=== PATIENT | female | born 1940 | race Caucasian/White ===

== ENCOUNTER 2020-06-28 14:25 | Emergency (ER) | payer OTHER ==
--- OUTSIDE RECORDS SUMMARY | 2020-06-28 14:28 | XMS REPORT | Continuity of Care Document ---
:1940 Author Organization [facility] t Address [address] [place] [address] Care Team Providers Name Role Phone Kyrie BARRAZA Loida Primary Care Physician Problems Condition Condition Condition Status Onset Resolution Last Treating Co mments Source Name Details Category Date Date Treatment Clinician Date Anesthesia Anesthesia Problem Active [facility] Other Other Problem Active [facility] chronic chronic [facility] pain pain [facility] Tinea Tinea Problem Active [facility] unguium [facility]guium [facility] Dizziness Dizziness Problem [facility] Neuropathy Neuropathy Problem Active [facility] Hypertensi Hypertensi Problem Active [facility] on [facility] Edema, Edema, Problem Active [facility] - extremity extremity Viktor delmis l [facility] 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 Lucy kes - emia emia [facility] Chest Chest Problem Active [facility] discomfort discomfort Lucy kes - [facility] Cervicalgi Cervicalgi Problem Active [facility] a [facility] Osteoarthr Osteoarthr Problem Active [facility] itis of itis of [facility] - multiple multiple Memori a joints, joints, l unspecifie unspecifie Ou tpati d d ent osteoarthr osteoarthr Cl inics itis type itis type Paresthesi Paresthesi Problem Active [facility] a of skin a of skin [facility] Paronychia Paronychia Problem Active [facility] of toe of of toe of Luke [facility] - right foot right foot Me moria l [facility] Prolapse Prolapse Problem Active [facility] t 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 [facility] - bladder, bladder, Memori a acquired acquired l [facility] Urge Urge Problem Active [facility] incontinen incontinen Lucy kes - ce of ce of Memoria urine urine l [facility]ics Dry eyes Dry eyes Problem Active [facility] Medicare Medicare Diagnosis Active [facility] annual annual [facility] - wellness wellness Memori a visit, visit, l subsequent subsequent Ou tpa ent Clinics Allergies, Adverse Reactions, Alerts Allergy Allergy Status Severity Reaction(s) Onset Inactive Treating Comm ents Source Name Type Date Date Clinician penicill Adverse Active constriction C HI [facility] in Reaction of throat [facility] Family History Family Member Diagnosis Comments Start Date Stop Date Source Natural brother Cancer [facility] ethodist Natural father Cancer [facility] thodist Natural father Diabetes [facility] Maternal grandmother Arthritis [facility] Maternal uncle Cancer [facility] Maternal uncle Heart disease [facility] Natural mother Cancer [facility] Paternal aunt Heart disease [facility] Paternal grandfather [facility] Paternal grandmother [facility] Natural sister Diabetes [facility] Social History Social Habit Start Date Stop Date Quantity Comments Source Sex Assigned At [facility] ethodist Alcohol intake 2018-03-23 2018-03-23 Current [facility] thodist 00:00:00 00:00:00 non-drinker of alcohol (finding) Smoking Status Start Date Stop Date Source Never smoker [facility] Medications Ordered Filled Start Stop Current Ordering Indication Dosage Frequency Signature Comments Components Source Medication Medication Date Date Medication? Clinician (SIG) Name Name Losartan Losartan Yes Na Mittal TAKE ONE [facility] Potassium Potassium 2-13 (1) [facility] - 00:00: TABLET(S) Memoria 00 BY MOUTH l ONCE A Out DAY. ent Clinics magnesium Yes 500mg QD Take 500 Jessica ston gluconate 6-13 mg by Methodi (MAGONATE) 10:06: mouth st 500 mg 16 daily. tablet tablet folic acid Yes 1{tbl} QD Take 1 Jessica ston 2.5 mg + B6 6-13 tablet by Met hodi 25 mg + B12 10:06: mouth st 2 mg 16 daily. (FOLBIC) 2.5-25-2 mg tablet dextrometho 2018-0 Yes 5mL Q12H Take 5 mL [place] rphan-guaif 6-13 by mouth Meth randolph enesin 10:06: every 12 st (ROBITUSSIN 16 (twelve) -DM) 10-100 hours. mg/5 mL liquid aspirin 2018-0 Yes 81mg QD Take 81 mg [place] (ECOTRIN) 6-13 by mouth Method i 81 MG 10:06: daily. st enteric 16 coated tablet losartan 2018-0 Yes 100mg QD Take 100 [place] (COZAAR) 6-13 mg by Methodi 100 MG 10:06: mouth st tablet 15 daily. hydroCHLORO 2018-0 Yes 25mg QD Take 25 mg John thiazide 6-13 by mouth Methodi (HYDRODIURI 10:06: daily. st L) 25 MG 15 tablet calcium 2018-0 Yes 1334mg [id number] Take 1,334 John acetate 6-13 [id number] mg by Metho di (PHOSLO) 10:06: 3D mouth 3 st 667 mg 15 (three) capsule times a day with meals. Aspir-81 Aspir-81 Yes Na Mittal [address] [facility] Lamisil Lamisil Yes Na Mittal [address] [facility] Macrobid Macrobid Yes Na Mittal [address] with food [facility] ent Clinics Procedures This patient has no known procedures. Plan of Care Planned Activity Planned Date Details Comments Source Future Scheduled 2020-06-11 INFLUENZA VACCINE [facility] 00:00:00 [code = INFLUENZA VACCINE] Future Scheduled 2003-12-14 65+ PNEUMOCOCCAL [place] 00:00:00 VACCINE (1 of 2 - PCV13) [code = 65+ PNEUMOCOCCAL VACCINE (1 of 2 - PCV13)] Future Scheduled 1988 SHINGLES VACCINES (#1) [facility] 00:00:00 [code = SHINGLES VACCINES (#1)] Encounters Start End Encounter Admission Attending Care Care Encounter Source Date/Time Date/Time Type Type Clinicians Facility Department ID 2020-03-06 2020-03-06 [facility] [id number] [address] 10:00[facility] 10:00[facility] [facility] [address] [facility] Medicine Medicine Outpati ent Clinics 2020-03-06 2020-03-06 [facility] [id number] 09:40:00 09:40:[address] [facility] - [address] [facility] Medicine l Medicine Outpati ent Clinics 2019-12-25 2019-12-25 [facility] [id number] 10[facility]00:00 10:00:[address] [facility] - [address] [facility] Medicine l Medicine Outpati ent Clinics 2019-11-02 2019-11-02 [facility] [id number] 10:16:00 10:16:00 [place] [employer] [facility] - Drive [facility] Medicine l Medicine Outpati ent Clinics 2019-09-14 2019-09-14 [facility] [id number] 16:29:00 16:29:00 [place] [employer] [facility] - [facility] Medicine l Medicine Outpati ent Clinics 2019-06-21 2019-06-21 [facility] [id number] 10:40:00 10:40:00 [place] [employer] [facility] - Drive [facility] l Medicine Outpati ent Clinics 2019-02-03 2019-02-03 [facility] [id number] 10:18:00 10:18:00 [place] [employer] [facility] - Drive [facility] Medicine l Medicine Outpati ent Clinics 2018-12-22 2018-12-22 [facility] [id number] 11:15:00 11:15:[address] [facility] - [address] [facility] Medicine l Medicine Outpati ent Clinics 2018-11-23 2018-11-23 [facility] [id number] 11:15:00 11:15:[address] [facility] - [address] [facility] Medicine l Medicine Outpati ent Clinics 2018-03-03 2018-03-03 [facility] [id number] 09:15:00 09:15:00 [place] [address] [facility] 2018-02-18 2018-02-18 [facility] [id number] 13:18:00 13:18:00 t [employer] [facility] ent Clinics 2018-01-05 2018-01-05 [facility] [id number] 10:45:00 10:45:00 [employer] [facility] ent Clinics Results This patient has no known results.
--- OUTSIDE RECORDS SUMMARY | 2020-06-28 14:28 | XMS REPORT | Clinical Summary ---
:1940 Author Organization [facility] [employer] Address [address] [place] [address] Care Team Providers Name Role Phone Loida Mittal DO Primary Care Provider Allergies No Known Allergies Medications Medication Sig Dispensed Refills Start Date End Date Status losartan (COZAAR) 100 MG Take 100 mg 0 Active tablet by mouth daily. hydroCHLOROthiazide Take 25 mg by 0 Active (HYDRODIURIL) 25 MG tablet mouth daily. calcium acetate (PHOSLO) Take 1,334 mg 0 Active 667 mg capsule by mouth 3 (three) times a day with meals. magnesium gluconate Take 500 mg 0 Active (MAGONATE) 500 mg tablet by mouth tablet daily. folic acid 2.5 mg + B6 25 Take 1 tablet 0 Active mg + B12 2 mg (FOLBIC) by mouth 2.5-25-2 mg tablet daily. dextromethorphan-guaifenesi Take 5 mL by 0 Active n (ROBITUSSIN-DM) 10-100 mouth every mg/5 mL liquid 12 (twelve) hours. aspirin (ECOTRIN) 81 MG Take 81 mg by 0 Active enteric coated tablet mouth daily. Active Problems No known active problems Family History Medical History Relation Name Comments Cancer Brother Cancer Father Diabetes Father Arthritis Maternal Grandmother Cancer Maternal Uncle Heart disease Maternal Uncle Cancer Mother Heart disease Paternal Aunt Heart disease Paternal Grandfather Cancer Paternal Grandmother Diabetes Sister Relation Name Status Comments Brother Father Maternal Grandmother Maternal Uncle Mother Paternal Aunt Paternal Grandfather Paternal Grandmother Sister Social History Tobacco Use Types Packs/Day Years Used Date Never Smoker Alcohol Use Drinks/Week oz/Week Comments No Sex Assigned at Date Recorded Not on file Job Start Date Occupation Industry Not on file Not on file Not on file Travel History Travel Start Travel End No recent travel history available. Last Filed Vital Signs Not on file Plan of Treatment Health Maintenance Due Date Last Done Comments SHINGLES VACCINES (#1) 1988 65+ PNEUMOCOCCAL VACCINE (1 of 2 - PCV13) 12/14/2003 INFLUENZA VACCINE 06/11/2020 Results Not on fileafter 06/28/2019 Advance Directives For more information, please contact: [phone] Type Date Recorded Patient Esthetician/Owner Explanati on Advance Directives, Living Will and Medical Power of Sports Intern
--- NOTE | 2020-06-28 15:28 | RAD REPORT ---
EXAM DESCRIPTION: CT - Head Brain Wo Cont - 06/28/2020 3:18 pm CLINICAL HISTORY: Headache;Numbness Headache, drowsiness COMPARISON: No comparisons TECHNIQUE: All CT scans are performed using dose optimization technique as appropriate and may inclu de automated exposure control or mA/KV adjustment according to patient size. FINDINGS: No intracranial hemorrhage, hydrocephalus or extra-axial fluid collection.Moderate general ized brain atrophy is present with moderate periventricular and deep white matter chronic microvascul ar ischemic changes.No areas of brain edema or evidence of midline shift. The paranasal sinuses and mastoids are clear. The calvarium is intact. IMPRESSION: No acute intracranial abnormality.
--- NOTE | 2020-06-28 15:48 | RAD REPORT ---
EXAM DESCRIPTION: RAD - Chest Single View - 06/28/2020 3:43 pm CLINICAL HISTORY: numbness Chest pain. COMPARISON: No comparisons FINDINGS: Portable technique limits examination quality. The lungs are grossly clear. The heart is normal in size. No displaced fractures. IMPRESSION: No acute intrathoracic process suspected.
[2020-06-28 16:11] LABS: Absolute Lymphocytes (CBC) 3.1 K/uL (0.7-4.9); Basophils % 0.9 % (0-1.3); Hematocrit 42.3 % (36.0-45.0); Lymphocytes % 44.8 % (15.3-44.8); MPV 8.2 fL (7.6-11.3); Protime INR 0.91; RBC Red Blood Cell Count 4.77 M/uL (3.86-4.86)
[2020-06-28 16:25] LABS: ALT/SGPT 20 U/L (12-78); AST/SGOT 15 U/L (15-37); Albumin 3.7 g/dL (3.4-5.0); Alkaline Phosphatase 53 U/L (45-117); BUN Blood Urea Nitrogen 23 mg/dL (7-18); Bicarbonate 29 mmol/L (21-32); Bilirubin Direct 0.1 mg/dL (0-0.2); Bilirubin Total 0.5 mg/dL (0.2-1.0); Glucose Level 84 mg/dL (74-106); Magnesium 2.5 mg/dL (1.8-2.4); NT PRO-BNP 39 pg/mL (<450); Potassium 4.2 mmol/L (3.5-5.1); Protein, Total 7.4 g/dL (6.4-8.2); Sodium Level 143 mmol/L (136-145); Troponin (Emerg Dept Use Only) < 0.02 ng/mL (0.0-0.045)
--- NOTE | 2020-06-28 17:23 | ER ---
Nurse's Notes [facility] Name: Pavithra Howe Age: 79 yrs Sex: Female : 1940 Arrival Date: 06/28/2020 Time: 14:27 Bed 24 Private MD: Rebecca Mittal Diagnosis: Headache;Paresthesia of skin Presentation: 06/28 14:36 Chief complaint: Patient states: left eye blurry vision, left side of face tingling, sv left sided headache, gait has been off and leaning to the left side, feels "fuzzy", leg leg feels heavy x 10 days. Coronavirus screen: Client denies travel out of the [place] in the last 14 days. At this time, the client does not indicate any symptoms associated with coronavirus-19. Ebola Screen: No symptoms or risks identified at this time. Initial Sepsis Screen: Does the patient meet any 2 criteria? HR > 90 bpm. No. Patient's initial sepsis screen is negative. Does the patient have a suspected source of infection? No. Patient's initial sepsis screen is negative. Risk Assessment: Do you want to hurt yourself or someone else? Patient reports no desire to harm self or others. Onset of symptoms was June 18, 2020. 14:36 Method Of Arrival: Wheelchair sv 14:36 Acuity: JESSIE 2 sv Triage Assessment: 15:22 Headache History: Denies prior headaches. jd3 Historical: - Allergies: 14:39 PENICILLINS; sv - Home Meds: 15:04 losartan 50 mg oral tab 1 tab once daily [Active]; iw - PMHx: 14:39 Hypertension; sv - PSHx: 15:04 None; iw - Immunization history:: Adult Immunizations up to date. - Social history:: Smoking status: Patient denies any tobacco usage or history of. Patient/guardian denies using. Screenin:36 VAN Screening: Arm Drift: Patient shows no arm weakness. Patient is VAN negative. sv 14:44 Abuse screen: Denies threats or abuse. Nutritional screening: No deficits noted. jd3 Tuberculosis screening: No symptoms or risk factors identified. VAN Screening: Arm Drift: Patient shows no arm weakness. Patient is VAN negative. The patient has not been NPO before screening. The patient is currently on the following diet: regular The patient is alert, able to follow commands. The patient does not exhibit slurred or garbled speech The patient is not exhibiting difficulty speaking. The patient does not exhibit difficulty understanding words. The patient is able to swallow own secretions with no drooling or need for suction. Patient tolerated one teaspoon of water. No drooling, immediate coughing, gurgling, or clearing of the throat was noted. The patient tolerated 90mL of water. No drooling, immediate coughing, gurgling, or clearing of the throat was noted. The patient passed the bedside swallow screening. Oral medications may be given as ordered. Contact Physician for further diet orders. Fall Risk Ambulatory Aid- None/Bed Rest/Nurse Assist (0 pts). Gait- Normal/Bed Rest/Wheelchair (0 pts) Mental Status- Oriented to own ability (0 pts). Total Irwin Fall Scale indicates No Risk (0-24 pts). Assessment: 14:39 Reassessment: Informed Dr Alvarez of pt's reason for visit and time of onset. sv 14:44 General: Appears in no apparent distress. uncomfortable, Behavior is calm, cooperative, jd3 appropriate for age. Pain: Denies pain. Neuro: Level of Consciousness is awake, alert, obeys commands, Oriented to person, place, time, situation, [employer] Developer are equal bilaterally Moves all extremities. Full function Gait is steady, Speech is normal, Facial symmetry appears normal, Pupils are PERRLA, Intact Reports blurred vision in left eye numbness in left cheek. Cardiovascular: Denies chest pain, Capillary refill < 3 seconds Patient's skin is warm and dry. Respiratory: Airway is patent Respiratory effort is even, unlabored, Respiratory pattern is regular, symmetrical, Denies cough, shortness of breath. GI: No signs and/or symptoms were reported involving the gastrointestinal system. Patient currently denies constipation, diarrhea, nausea, vomiting. : No signs and/or symptoms were reported regarding the genitourinary system. EENT: No signs and/or symptoms were reported regarding the EENT system. Derm: Skin is intact, Skin is dry, Skin is normal, Skin temperature is warm. Musculoskeletal: Circulation, motion, and sensation intact. Range of motion: intact in all extremities, even and steady gait. 15:17 Reassessment: Ok by Dr Alvarez to order a cardiac workup. sv 15:32 Reassessment: Patient appears in no apparent distress at this time. Patient and/or jd3 family updated on plan of care and expected duration. Pain level reassessed. Patient is alert, oriented x 3, equal unlabored respirations, skin warm/dry/pink. updated pt's on plan of care per pt's request. 16:43 Reassessment: Patient appears in no apparent distress at this time. No changes from jd3 previously documented assessment. Patient and/or family updated on plan of care and expected duration. Pain level reassessed. Patient is alert, oriented x 3, equal unlabored respirations, skin warm/dry/pink. awaiting disposition from provider. 17:40 Reassessment: Patient appears in no apparent distress at this time. Patient and/or jd3 family updated on plan of care and expected duration. Pain level reassessed. Patient is alert, oriented x 3, equal unlabored respirations, skin warm/dry/pink. pt reported understanding of discharge instructions, even and steady gait upon discharge Patient denies pain at this time. Vital Signs: 14:36 BP 187 / 90; Pulse 95; Resp 16; Temp 98.6(O); Pulse Ox 96% on R/A; Weight 86.18 kg; sv Height 5 ft. 5 in. (165.10 cm); 15:01 BP 155 / 81; Pulse 82; Resp 15; Pulse Ox 98% on R/A; jd3 15:31 BP 160 / 85; Pulse 79; Resp 16 S; Pulse Ox 99% on R/A; jd3 16:44 BP 177 / 90; Pulse 74; Resp 17 S; Pulse Ox 98% on R/A; jd3 17:41 BP 167 / 80; Pulse 84; Resp 16 S; Pulse Ox 98% on R/A; jd3 14:36 Body Mass Index 31.62 (86.18 kg, 165.10 cm) sv ED Course: 14:27 Patient arrived in ED. as 14:27 Rebecca Mittal MD is Private Physician. as 14:39 Triage completed. sv 14:39 Arm band placed on. sv 14:44 Néstor Miller RN is Primary Nurse. jd3 14:44 Patient has correct armband on for positive identification. Bed in low position. Call jd3 light in reach. Side rails up X 1. hospital monitor on. Pulse ox on. NIBP on. Warm blanket given. 15:18 CT Head Brain wo Cont In Process Unspecified. EDMS 15:43 XRAY Chest (1 view) In Process Unspecified. EDMS 15:53 Kevin Alvarez MD is Attending Physician. kdr 16:00 Inserted saline lock: 20 gauge in right antecubital area, using aseptic technique. dh4 Blood collected. 17:21 Rebecca Mittal MD is Referral Physician. kdr 17:40 No provider procedures requiring assistance completed. IV discontinued, intact, jd3 bleeding controlled, No redness/swelling at site. Pressure dressing applied. Administered Medications: No medications were administered Outcome: 17:22 Discharge ordered by MD. kdr 17:40 Discharged to home ambulatory, with family. jd3 17:40 Condition: stable 17:40 Discharge instructions given to patient, family, Instructed on discharge instructions, follow up and referral plans. Demonstrated understanding of instructions, follow-up care. 17:42 Patient left the ED. jd3 Signatures: Dispatcher [employer] Nina Enriquez RN RN Kevin Alvarez MD MD [facility] Adwoa Peres Irene, RN RN Nsétor Miller RN RN [facility] Elliott Alexis dh4 Corrections: (The following items were deleted from the chart) 15:17 14:44 Musculoskeletal: Circulation, motion, and sensation intact. Range of motion: iw intact in all extremities, iw 15:21 14:44 Patient has correct armband on for positive identification. Bed in low position. jd3 Call light in reach. Side rails up X 1. iw 15: 14:44 hospital monitor on. Pulse ox on. NIBP on. jd3 15:21 14:44 Warm blanket given. jd3 15:21 14:44 General: Appears in no apparent distress. uncomfortable, Behavior is calm, jd3 cooperative, appropriate for age, iw 15: 14:44 Pain: Denies pain. jd3 15:21 14:44 Neuro: Level of Consciousness is awake, alert, obeys commands, Oriented to jd3 person, place, time, situation, [employer] Application Developer are equal bilaterally Moves all extremities. Full function Gait is steady, Speech is normal, Facial symmetry appears normal, Pupils are PERRLA, Intact Reports blurred vision in left eye numbness in left cheek :44 Cardiovascular: Denies chest pain, Capillary refill < 3 seconds Patient's skin is jd3 warm and dry. 44 Respiratory: Airway is patent Respiratory effort is even, unlabored, Respiratory jd3 pattern is regular, symmetrical, Denies cough, shortness of breath :44 GI: No signs and/or symptoms were reported involving the gastrointestinal system. jd3 Patient currently denies constipation, diarrhea, nausea, vomiting, : No signs and/or symptoms were reported regarding the genitourinary system. [facility] : EENT: No signs and/or symptoms were reported regarding the EENT system. [facility] Derm: Skin is intact, Skin is dry, Skin is normal, Skin temperature is warm [facility] :44 Musculoskeletal: Circulation, motion, and sensation intact. Range of motion: jd3 intact in all extremities, even and steady gait Abuse screen: Denies threats or abuse. [facility] :44 Nutritional screening: No deficits noted. [facility] :44 Tuberculosis screening: No symptoms or risk factors identified. [facility] :44 VAN Screening: Arm Drift: Patient shows no arm weakness. Patient is VAN negative. [facility] :44 Fall Risk Ambulatory Aid- None/Bed Rest/Nurse Assist (0 pts). Gait- Normal/Bed jd3 Rest/Wheelchair (0 pts) Mental Status- Oriented to own ability (0 pts). Total Irwin Fall Scale indicates No Risk (0-24 pts). :44 The patient has not been NPO before screening. The patient is currently on the jd3 following diet: regular The patient is alert, able to follow commands. The patient does not exhibit slurred or garbled speech The patient is not exhibiting difficulty speaking. The patient does not exhibit difficulty understanding words. The patient is able to swallow own secretions with no drooling or need for suction. Patient tolerated one teaspoon of water. No drooling, immediate coughing, gurgling, or clearing of the throat was noted. The patient tolerated 90mL of water. No drooling, immediate coughing, gurgling, or clearing of the throat was noted. The patient passed the bedside swallow screening. Oral medications may be given as ordered. Contact Physician for further diet orders. 15: 15:01 BP 155 / 81; Pulse 82bpm; Resp 16bpm; Pulse Ox 98% RA; iw jd3 15:22 15:17 Headache History: Denies prior headaches. jd3 16:44 15:32 Reassessment: Patient appears in no apparent distress at this time. Patient jd3 and/or family updated on plan of care and expected duration. Pain level reassessed. Patient is alert, oriented x 3, equal unlabored respirations, skin warm/dry/pink. jd3
--- NOTE | 2020-06-28 17:23 | EDPHYS ---
Physician Documentation [facility] Name: Pavithra Howe Age: 79 yrs Sex: Female : 1940 Arrival Date: 06/28/2020 Time: 14:27 Bed 24 Private MD: Rebecca Mittal ED Physician Kevin Alvarez HPI: 06/28 17:24 This 79 yrs old Female presents to ER via Wheelchair with complaints of kdr Numbness Of Face, Vision Problem, Headache. 17:24 The patient's problem is reported as paresthesias, in left side of face, visual kdr difficulty, blurred vision. Onset: The symptoms/episode began/occurred 10 day(s) ago. Duration: The episode is continuous. Context: the episode(s) was witnessed, by no one, symptoms became apparent at an unknown time, occurred at home. The symptoms are alleviated by nothing. The symptoms are aggravated by nothing. Associated signs and symptoms: Pertinent positives: headache, Pertinent negatives: abdominal pain, agitation, ataxia, blurred vision, chest pain, combativeness, confusion, diaphoresis, diarrhea, dizziness, lightheadedness. Severity of symptoms: At their worst the symptoms were very mild in the emergency department the symptoms are unchanged. Patient's baseline: Neuro: alert and fully oriented, Motor: no deficits, Ambulation: walks without assistance, Speech: normal. The patient has not experienced similar symptoms in the past. The patient has not recently seen a physician. Historical: - Allergies: 14:39 PENICILLINS; sv - Home Meds: 15:04 losartan 50 mg oral tab 1 tab once daily [Active]; iw - PMHx: 14:39 Hypertension; sv - PSHx: 15:04 None; iw - Immunization history:: Adult Immunizations up to date. - Social history:: Smoking status: Patient denies any tobacco usage or history of. Patient/guardian denies using. ROS: 17:24 Constitutional: Negative for fever, chills, and weight loss, ENT: Negative for injury, kdr pain, and discharge, Neck: Negative for injury, pain, and swelling, Cardiovascular: Negative for chest pain, palpitations, and edema, Respiratory: Negative for shortness of breath, cough, wheezing, and pleuritic chest pain, Abdomen/GI: Negative for abdominal pain, nausea, vomiting, diarrhea, and constipation, Back: Negative for injury and pain, : Negative for injury, bleeding, discharge, and swelling, MS/Extremity: Negative for injury and deformity, Skin: Negative for injury, rash, and discoloration, Psych: Negative for depression, anxiety, suicide ideation, homicidal ideation, and hallucinations, Allergy/Immunology: Negative for hives, rash, and allergies, Endocrine: Negative for neck swelling, polydipsia, polyuria, polyphagia, and marked weight changes, Hematologic/Lymphatic: Negative for swollen nodes, abnormal bleeding, and unusual bruising. 17:24 Eyes: Positive for blurry vision, of the iris of left eye, Negative for discharge, foreign body sensation, icterus, injury or acute deformity, itching, matting, pain, photophobia, redness, sunken appearance, swelling, tearing. Exam: 17:24 Constitutional: This is a well developed, well nourished patient who is awake, alert, kdr and in no acute distress. Head/Face: Normocephalic, atraumatic. Eyes: Pupils equal round and reactive to light, extra-ocular motions intact. Lids and lashes normal. Conjunctiva and sclera are non-icteric and not injected. Cornea within normal limits. Periorbital areas with no swelling, redness, or edema. Neck: Trachea midline, no thyromegaly or masses palpated, and no cervical lymphadenopathy. Supple, full range of motion without nuchal rigidity, or vertebral point tenderness. No Meningismus. Chest/axilla: Normal chest wall appearance and motion. Nontender with no deformity. No lesions are appreciated. Cardiovascular: Regular rate and rhythm with a normal S1 and S2. No gallops, murmurs, or rubs. Normal PMI, no JVD. No pulse deficits. Respiratory: Lungs have equal breath sounds bilaterally, clear to auscultation and percussion. No rales, rhonchi or wheezes noted. No increased work of breathing, no retractions or nasal flaring. Abdomen/GI: Soft, non-tender, with normal bowel sounds. No distension or tympany. No guarding or rebound. No evidence of tenderness throughout. Back: No spinal tenderness. No costovertebral tenderness. Full range of motion. Skin: Warm, dry with normal turgor. Normal color with no rashes, no lesions, and no evidence of cellulitis. MS/ Extremity: Pulses equal, no cyanosis. Neurovascular intact. Full, normal range of motion. Neuro: Awake and alert, GCS 15, oriented to person, place, time, and situation. Cranial nerves II-XII grossly intact. Motor strength 5/5 in all extremities. Sensory grossly intact. Cerebellar exam normal. Normal gait. Psych: Awake, alert, with orientation to person, place and time. Behavior, mood, and affect are within normal limits. 19:42 Radiologist reports: negative kdr 20:03 ECG was reviewed by the Attending Physician. kdr Vital Signs: 14:36 BP 187 / 90; Pulse 95; Resp 16; Temp 98.6(O); Pulse Ox 96% on R/A; Weight 86.18 kg; sv Height 5 ft. 5 in. (165.10 cm); 15:01 BP 155 / 81; Pulse 82; Resp 15; Pulse Ox 98% on R/A; jd3 15:31 BP 160 / 85; Pulse 79; Resp 16 S; Pulse Ox 99% on R/A; jd3 16:44 BP 177 / 90; Pulse 74; Resp 17 S; Pulse Ox 98% on R/A; jd3 17:41 BP 167 / 80; Pulse 84; Resp 16 S; Pulse Ox 98% on R/A; jd3 14:36 Body Mass Index 31.62 (86.18 kg, 165.10 cm) sv MDM: 17:22 Patient medically screened. kdr 17:24 Data reviewed: vital signs, nurses notes, lab test result(s), EKG, radiologic studies. kdr Counseling: I had a detailed discussion with the patient and/or guardian regarding: the historical points, exam findings, and any diagnostic results supporting the discharge/admit diagnosis, lab results, radiology results, the need for outpatient follow up. 06/28 15:17 Order name: Basic Metabolic Panel; Complete Time: 16:40 sv 06/28 15:17 Order name: CBC with Diff; Complete Time: 16:40 sv 06/28 15:17 Order name: LFT's; Complete Time: 16:40 sv 06/28 15:17 Order name: Magnesium; Complete Time: 16:40 sv 06/28 15:17 Order name: NT PRO-BNP; Complete Time: 16:40 sv 06/28 15:17 Order name: PT-INR; Complete Time: 16:40 sv 06/28 14:54 Order name: CT Head Brain wo Cont; Complete Time: 15:30 sv 06/28 15:17 Order name: Troponin (emerg Dept Use Only); Complete Time: 16:40 sv 06/28 15:17 Order name: XRAY Chest (1 view); Complete Time: 16:40 sv 06/28 15:17 Order name: EKG; Complete Time: 15:18 sv 06/28 15:17 Order name: Cardiac monitoring; Complete Time: 15:24 sv 06/28 15:17 Order name: EKG - Nurse/Tech; Complete Time: 15:37 sv 06/28 15:17 Order name: IV Saline Lock; Complete Time: 16:13 sv 06/28 15:17 Order name: Labs collected and sent; Complete Time: 16:13 sv 06/28 15:17 Order name: O2 Per Protocol; Complete Time: 15:24 sv 06/28 15:17 Order name: O2 Sat Monitoring; Complete Time: 15:24 sv 06/28 17:23 Order name: Visual Acuity kdr EC:03 Rate is 74 beats/min. Rhythm is regular, Sinus Rhythm with PACs. QRS [place] is Normal. NC kdr interval is normal. QRS interval is normal. QT interval is normal. Clinical impression: NSR w/ Non-specific ST/T Changes. Administered Medications: No medications were administered Disposition: 06/28/20 17:22 Discharged to Home. Impression: Headache, Paresthesia of skin. - Condition is Stable. - Discharge Instructions: General Headache Without Cause, Pain Without a Known Cause, Paresthesia, [id number]. - Medication Reconciliation Form, Thank You Letter form. - Follow up: Rebecca Mittal MD; When: 2 - 3 days; Reason: If symptoms return, Further diagnostic work-up, Recheck today's complaints, Continuance of care, Re-evaluation by your physician. - Problem is an ongoing problem. - Symptoms are unchanged. Signatures: Dispatcher [employer] Nina Enriquez RN RN sv Rittger, Kevin, MD MD kdr Waters, Shelly, LATEX FASHIONS DESIGNER-C LATEX FASHIONS DESIGNER-Csnw Elaine Smith RN RN iw Davies, Jonathon, RN RN jd3 Corrections: (The following items were deleted from the chart) 17:42 17:22 06/28/2020 17:22 Discharged to Home. Impression: Headache; Paresthesia of skin. jd3 Condition is Stable. Forms are Medication Reconciliation Form, Thank You Letter, Antibiotic Education, Prescription Opioid Use. Follow up: Rebecca Mittal; When: 2 - 3 days; Reason: If symptoms return, Further diagnostic work-up, Recheck today's complaints, Continuance of care, Re-evaluation by your physician. Problem is an ongoing problem. Symptoms are unchanged. kdr
[2020-06-28 20:05] VITALS: TEMP 98.6
[2020-06-28 20:08] VITALS: O2SAT 98
[2020-06-28 20:10] VITALS: BP 167/80
== END 2020-06-28 17:42 | disposition home or self-care (01) ==
LOC: ER 14:25
DX: R51 Headache (principal); I10 Essential (primary) hypertension; Z88.0 Allergy status to penicillin
CPT/HCPCS: 36415; 70450; 71045; 80048; 80076; 83735; 83880; 84484; 85025; 85610; 93005; 99284

== ENCOUNTER 2022-04-24 19:27 | Inpatient (IN) | payer OTHER ==
[2022-04-24] MEDS ORDERED: NA CHLORIDE 0.9% 1,000 ML ONE (20:35)
[2022-04-24 20:47] LABS: Absolute Lymphocytes (CBC) 0.8 K/uL (0.7-4.9); Hematocrit 40.2 % (36.0-45.0); Lymphocytes % 11.3 % (15.3-44.8); MCV 89.4 fL (80-100); MPV 7.9 fL (7.6-11.3); RBC Red Blood Cell Count 4.49 M/uL (3.86-4.86)
[2022-04-24 20:51] LABS: Protime INR 1.06
[2022-04-24] MEDS ORDERED: ACETAMINOPHEN 500 MG TAB ONE (21:12)
[2022-04-24 21:51] LABS: ALT/SGPT 22 U/L (12-78); AST/SGOT 25 U/L (15-37); Albumin 3.3 g/dL (3.4-5.0); Alkaline Phosphatase 50 U/L (45-117); BUN Blood Urea Nitrogen 15 mg/dL (7-18); Bicarbonate 27 mmol/L (21-32); Bilirubin Total 0.4 mg/dL (0.2-1.0); Glomerular Filtration Rate 91 ml/min (=/>90); Glucose Level 104 mg/dL (74-106); Lipase 164 U/L (73-393); Potassium 3.7 mmol/L (3.5-5.1); Protein, Total 6.8 g/dL (6.4-8.2); Sodium Level 138 mmol/L (136-145); Troponin High Sensitivity 13.8 pg/mL (<58.9)
[2022-04-24 21:52] LABS: Bilirubin Direct < 0.1 mg/dL (0-0.2)
--- NOTE | 2022-04-24 21:55 | RAD REPORT ---
EXAM DESCRIPTION: Luke Single View04/24/2022 9:06 pm CLINICAL HISTORY: sob COMPARISON: 2019 FINDINGS: The lungs appear clear of acute infiltrate. The heart is normal size IMPRESSION: No acute abnormalities displayed
[2022-04-24 22:05] LABS: Ferritin 377.6 ng/mL (8-388)
[2022-04-25] MEDS ORDERED: METHYLPREDNISOLONE 125 MG INJ ONE (00:28)
--- NOTE | 2022-04-25 00:28 | EDPHYS ---
Physician Documentation [facility] Name: Pavithra Howe Age: 81 yrs Sex: Female : 1940 Arrival Date: 04/24/2022 Time: 19:30 Bed 28 Private MD: ED Physician Binu Robbins HPI: 04/24 20:05 This 81 yrs old Female presents to ER via Unassigned with complaints of Cough, kb Headache, Sore Throat. 20:05 difficulty breathing, 82-84% on room air, cough, fever since this morning. kb 22:10 The patient or guardian reports cough, that is intermittent, described as mild, flu kb symptoms, low-grade fever, myalgias. The patient or guardian reports difficulty breathing. Onset: The symptoms/episode began/occurred this morning. Severity of symptoms: At their worst the symptoms were moderate, in the emergency department the symptoms are unchanged. Modifying factors: The symptoms are alleviated by nothing, the symptoms are aggravated by nothing. Associated signs and symptoms: Pertinent positives: fever, rhinorrhea, sore throat. The patient has not experienced similar symptoms in the past. The patient has not recently seen a physician. Historical: - Allergies: 20:08 PENICILLINS; bb - Home Meds: 20:59 losartan 50 mg Oral tab 1 tab once daily [Active]; kd3 - PMHx: 20:59 Hypertension; kd3 - Immunization history:: Pfizer x 3. - Social history:: Smoking status: Patient denies any tobacco usage or history of. ROS: 22:09 Cardiovascular: Negative for chest pain, palpitations, and edema. kb 22:09 Constitutional: Positive for malaise. 22:09 ENT: Positive for rhinorrhea, sore throat. 22:09 Respiratory: Positive for cough, shortness of breath. 22:09 Neuro: Positive for headache. 22:09 All other systems are negative. Exam: 22:09 Constitutional: This is a well developed, well nourished patient who is awake, alert, kb and in no acute distress. Head/Face: Normocephalic, atraumatic. ENT: Moist Mucous membranes Cardiovascular: Regular rate and rhythm with a normal S1 and S2. No gallops, murmurs, or rubs. No pulse deficits. Respiratory: Respirations even and unlabored. No increased work of breathing. Talking in full sentences Abdomen/GI: Soft, non-tender. No distention Skin: Warm, dry with normal turgor. Normal color. MS/ Extremity: Pulses equal, no cyanosis. Neurovascular intact. Full, normal range of motion. Neuro: Awake and alert, GCS 15, oriented to person, place, time, and situation. Moves all extremities. Normal gait. Psych: Awake, alert, with orientation to person, place and time. Behavior, mood, and affect are within normal limits. 22:11 ECG was reviewed by the Attending Physician. Vital Signs: 20:05 BP 135 / 67; Pulse 119; Resp 20 S; Temp 102.9(O); Pulse Ox 88% on R/A; Weight 71.67 kg bb (R); Height 5 ft. 5 in. (165.10 cm) (R); Pain 8/10; 21:00 BP 134 / 68; Pulse 106; Resp 17; Pulse Ox 98% on 2 lpm NC; kd3 22:47 Pulse 107; Resp 18; Pulse Ox 90% ; kd3 23:15 BP 142 / 69; Pulse 91; Resp 18; Temp 98.9(O); Pulse Ox 95% on 2 lpm NC; kd3 23:41 BP 123 / 64; Pulse 104; Resp 20; Pulse Ox 91% on 5 lpm NC; kd3 23:52 BP 108 / 62; Pulse 103; Resp 21; Pulse Ox 91% on R/A; kd3 04/25 01:12 Temp 98.3(O); kd3 04/24 20:05 Body Mass Index 26.29 (71.67 kg, 165.10 cm) MDM: 04/24 20:04 Patient medically screened. 22:09 Data reviewed: vital signs, nurses notes. Data interpreted: Pulse oximetry: on room air kb is 88 %. Interpretation: hypoxia. Plan: O2 by NC applied. 23:25 Counseling: I had a detailed discussion with the patient and/or guardian regarding: the kb historical points, exam findings, and any diagnostic results supporting the discharge/admit diagnosis, lab results, radiology results, the need for further work-up and treatment in the hospital. 04/24 20:08 Order name: BMP; Complete Time: 22:08 kb 04/24 20:08 Order name: Blood Culture Adult (2) 04/24 20:08 Order name: C-Reactive Protein; Complete Time: 22:08 kb 04/24 20:08 Order name: CBC with Diff; Complete Time: 21:03 kb 04/24 20:08 Order name: D-Dimer; Complete Time: 21:03 kb 04/24 20:08 Order name: Ferritin; Complete Time: 22:08 kb 04/24 20:08 Order name: Flu; Complete Time: 21:56 kb 04/24 20:08 Order name: LFT's; Complete Time: 22:08 kb 04/24 20:08 Order name: Lactate; Complete Time: 21:56 kb 04/24 20:08 Order name: Lipase; Complete Time: 22:08 kb 04/24 20:08 Order name: PT-INR; Complete Time: 21:03 kb 04/24 20:08 Order name: Procalcitonin; Complete Time: 21:56 kb 04/24 20:08 Order name: Ptt, Activated; Complete Time: 21:03 kb 04/24 20:08 Order name: Troponin HS; Complete Time: 22:08 kb 04/24 20:08 Order name: Chest Single View XRAY; Complete Time: 21:56 kb 04/24 20:08 Order name: COVID-19 SARS RT PCR (Document "Date of Onset" if Symptomatic); Complete kb Time: 21:56 04/24 20:08 Order name: Strep; Complete Time: 21:56 kb 04/24 21:04 Order name: CT Chest For PE Angio kb 04/24 21:33 Order name: Throat Culture EDPA 04/25 02:01 Order name: Urinalysis EDPA 04/25 02:01 Order name: Basic Metabolic Panel EDPA 04/25 02:01 Order name: Basic Metabolic Panel EDPA 04/25 02:01 Order name: CBC with Automated Diff EDMS 04/25 02:01 Order name: CBC with Automated Diff EDMS 04/25 02:01 Order name: Magnesium EDPA 04/25 02:01 Order name: Magnesium EDPA 04/25 06:21 Order name: Urinalysis EDPA 04/24 20:08 Order name: EKG; Complete Time: 20:09 kb 04/24 20:08 Order name: Cardiac monitoring; Complete Time: 20:58 kb 04/24 20:08 Order name: Droplet/Contact Precautions; Complete Time: 20:58 kb 04/24 20:08 Order name: EKG - Nurse/Tech; Complete Time: 20:58 kb 04/24 20:08 Order name: IV Start; Complete Time: 20:58 kb 04/24 20:08 Order name: Labs collected and sent; Complete Time: 20:58 kb 04/24 20:08 Order name: O2 Per Protocol; Complete Time: 20:58 kb 04/24 20:08 Order name: O2 Sat Monitoring; Complete Time: 20:58 kb 04/25 02:01 Order name: Heart Healthy EDMS EC:11 Rate is 110 beats/min. Rhythm is regular. Right axis deviation noted. IL interval is kb normal at 142 msec. QRS interval is normal at 88 msec. QT interval is normal at 446 msec. Administered Medications: 20:30 Drug: NS 0.9% 1000 ml Route: IV; Rate: 1000 ml; Site: right antecubital; kd3 21:08 Drug: Tylenol 1000 mg Route: PO; kd3 04/25 00:22 Drug: AtroVENT (ipratropium) Aerosol 0.5 mg Route: Inhalation; kd3 00:22 Drug: Xopenex (levalbuterol) (3) 1.25 mg Route: Inhalation; kd3 00:22 Drug: SOLU-Medrol (methylPrednisoLONE) 125 mg Route: IVP; Site: right antecubital; kd3 01:03 Drug: GI Cocktail without - (Maalox Suspension 30 ml, Lidocaine Liquid 2 % 15 kd3 ml) Route: PO; Disposition: 04/26 19:04 Co-signature as Attending Physician, Binu Robbins MD. [email or web address] Disposition Summary: 04/25/22 00:28 Hospitalization Ordered Hospitalization Status: Inpatient Admission kb Provider: Jose Ingram Condition: Fair kb Problem: new kb Symptoms: are unchanged kb Bed/Room Type: Standard kb Location: [facility] ER HOLD(04/25/22 01:11) Room Assignment: ERHOLD-(04/25/22 01:11) Diagnosis - Coronavirus infection, unspecified kb - Hypoxia kb Forms: - Medication Reconciliation Form kb - SBAR form kb Signatures: Dispatcher [employer] EDPA Annalisa Shea FNP-C FNP-Ckb Webb, Martha, RN Lakisha Gerber RN Binu Reyes MD MD [email or web address] [place] Garcia RN RN kd3 Corrections: (The following items were deleted from the chart) 04/25 01:11 00:28 Telemetry/MedSurg (Inpatient) kb 01: 00:28 kb mw
--- NOTE | 2022-04-25 00:28 | ER ---
Nurse's Notes [facility] Name: Pavithra Howe Age: 81 yrs Sex: Female : 1940 Arrival Date: 04/24/2022 Time: 19:30 Bed 28 Private MD: Diagnosis: Coronavirus infection, unspecified;Hypoxia Presentation: 04/24 20:05 Chief complaint: Spouse and/or significant other states: pt is not breathing right O2 bb at home in the 80s. Coronavirus screen: cough unrelated to allergies, fever, Client presents with at least one sign or symptom that may indicate coronavirus-19. Ebola Screen: No symptoms or risks identified at this time. Initial Sepsis Screen: Does the patient meet any 2 criteria? Yes Does the patient have a suspected source of infection? Yes: Productive cough/pneumonia If YES to both, name of provider notified: Annalisa VARELA-Katherine Risk Assessment: Do you want to hurt yourself or someone else? Patient reports no desire to harm self or others. Onset of symptoms was April 24, 2022. 20:05 Method Of Arrival: Wheelchair bb 20:05 Acuity: JESSIE 2 bb Triage Assessment: 20:59 Headache History: Denies prior headaches. General: Appears ill, Behavior is calm, kd3 cooperative. Pain: Pain currently is 8 out of 10 on a pain scale. Pain began gradually, Also complains of decreased appetite. Historical: - Allergies: 20:08 PENICILLINS; bb - Home Meds: 20:59 losartan 50 mg Oral tab 1 tab once daily [Active]; kd3 - PMHx: 20:59 Hypertension; kd3 - Immunization history:: Pfizer x 3. - Social history:: Smoking status: Patient denies any tobacco usage or history of. Screenin:57 Abuse screen: Denies threats or abuse. Denies injuries from another. Nutritional kd3 screening: No deficits noted. Tuberculosis screening: No symptoms or risk factors identified. Fall Risk None identified. Assessment: 20:58 Pain: Complains of pain in head ache, generalized body aches. Neuro: Level of kd3 Consciousness is awake, alert, obeys commands, Oriented to person, place, time, situation. Respiratory: Airway is patent Trachea midline Respiratory effort is even, unlabored, Respiratory pattern is regular, symmetrical, Sputum is thick, green. Vital Signs: 20:05 BP 135 / 67; Pulse 119; Resp 20 S; Temp 102.9(O); Pulse Ox 88% on R/A; Weight 71.67 kg bb (R); Height 5 ft. 5 in. (165.10 cm) (R); Pain 8/10; 21:00 BP 134 / 68; Pulse 106; Resp 17; Pulse Ox 98% on 2 lpm NC; kd3 22:47 Pulse 107; Resp 18; Pulse Ox 90% ; kd3 23:15 BP 142 / 69; Pulse 91; Resp 18; Temp 98.9(O); Pulse Ox 95% on 2 lpm NC; kd3 23:41 BP 123 / 64; Pulse 104; Resp 20; Pulse Ox 91% on 5 lpm NC; kd3 23:52 BP 108 / 62; Pulse 103; Resp 21; Pulse Ox 91% on R/A; kd3 04/25 01:12 Temp 98.3(O); kd3 04/24 20:05 Body Mass Index 26.29 (71.67 kg, 165.10 cm) ED Course: 04/24 19:30 Patient arrived in ED. bp1 20:04 Annalisa Shea FNP-C is PHCP. kb 20:04 Binu Robbins MD is Attending Physician. kb 20:08 Triage completed. bb 20:08 Arm band placed on Patient placed in an exam room, on a stretcher, on oxygen, on bb monitor and storage bin tender, on pulse oximetry. Family accompanied patient. 20:25 [place] Garcia, RN is Primary Nurse. kd3 20:57 Patient has correct armband on for positive identification. kd3 20:57 No provider procedures requiring assistance completed. Inserted saline lock: 20 gauge kd3 in right antecubital area, using aseptic technique. Blood collected. 20:58 COVID-19 SARS RT PCR (Document "Date of Onset" if Symptomatic) Sent. kd3 20:58 Strep Sent. kd3 21:02 Notified Nurse Practitioner and/or Physician Director Information Security of a critical lab result(s), bb [id number] Annalisa Shea HEAD ORTHOPEDIC TEAM PHYSICIAN notified. 21:08 Chest Single View XRAY In Process Unspecified. EDMS 22:49 CT Chest For PE Angio In Process Unspecified. EDMS 04/25 00:27 Jose Ingram MD is Hospitalizing Provider. kb Administered Medications: 04/24 20:30 Drug: NS 0.9% 1000 ml Route: IV; Rate: 1000 ml; Site: right antecubital; kd3 21:08 Drug: Tylenol 1000 mg Route: PO; kd3 04/25 00:22 Drug: AtroVENT (ipratropium) Aerosol 0.5 mg Route: Inhalation; kd3 00:22 Drug: Xopenex (levalbuterol) (3) 1.25 mg Route: Inhalation; kd3 00:22 Drug: SOLU-Medrol (methylPrednisoLONE) 125 mg Route: IVP; Site: right antecubital; kd3 01:03 Drug: GI Cocktail without - (Maalox Suspension 30 ml, Lidocaine Liquid 2 % 15 kd3 ml) Route: PO; Medication: 04/24 21:00 VIS not applicable for this client. kd3 Outcome: 04/25 00:28 Decision to Hospitalize by Provider. kb 04/26 12:58 Patient left the ED. ph Signatures: Dispatcher [employer] EDMS Annalisa Shea, AVERY-C SUPERVISOR SEWING DEPARTMENT-Lakisha Blue, RN RN [place] RN RN Claudette Astorga Kyli, RN RN kd3
[2022-04-25] MEDS ORDERED: IPRATROPIUM BROM 0.5MG/2.5ML ONE (00:29)
[2022-04-25] MEDS ORDERED: LEVALBUTEROL 1.25 MG/3 ML NEB ONE (00:29)
[2022-04-25] MEDS ORDERED: MAGNES/ALUMIN/SIMET 30ML UCUP ONE (00:58)
[2022-04-25] MEDS ORDERED: LIDOCAINE VISCOUS 2% SOLN 15 ML UDC ONE (00:58)
[2022-04-25] MEDS ORDERED: ACETAMINOPHEN 500 MG TAB PO PRN (01:48)
[2022-04-25] MEDS ORDERED: ONDANSETRON 4 MG/2 ML VIAL IV PRN (01:48)
[2022-04-25] MEDS ORDERED: ALBUTEROL INHALER 60 PUFF/8 GM IH PRN (02:00)
[2022-04-25 02:09] VITALS: BMI 27.3
[2022-04-25] MEDS ORDERED: AZITHROMYCIN 250 MG TAB PO ONE (05:49)
--- NOTE | 2022-04-25 05:56 | P.HP ---
Certification for Inpatient Patient admitted to: Inpatient With expected LOS: >2 Midnights Practitioner: I am a practitioner with admitting privileges, knowledge of patient current condition, hospital course, and medical plan of care. Services: Services provided to patient in accordance with Admission requirements found in Title 42 Section 412.3 of the Code of Federal Regulations Patient History Date of Service: 04/25/22 Reason for admission: Shortness of breath, COVID-19 disease. History of Present Illness: 81-year-old female patient with medical history significant for hypertension who was evaluated in the emergency room for episode of cough shortness of breath and fever. She also had issues with runny nose and sore throat. Because of symptoms there was concern for underlying infection so she was tested and found to be COVID-19 disease positive. She also had significant hypoxia with oxygen saturation in the 80s on room air so she was started on supplemental oxygen. She was admitted for inpatient care. She reported symptoms of myalgia and lethargy. Notable to mention is the fact that she had received her COVID 19 disease immunization x3. Allergies Penicillins Allergy (Verified 04/25/22 02:08) swelling, shortness of breath - Past Medical/Surgical History Has patient received pneumonia vaccine in the past: Yes Diabetic: No -: htn - Social History Smoking Status: Never smoker Alcohol use: No CD- Drugs: No Place of Residence: Home Review of Systems General: Fever, Chills, Weakness, Malaise Eyes: Unremarkable ENT: Throat Pain Respiratory: Cough, Shortness of Breath, SOB with Excertion Cardiovascular: Unremarkable Gastrointestinal: Unremarkable Genitourinary: Unremarkable Musculoskeletal: Unremarkable Integumentary: Unremarkable Neurological: Unremarkable Physical Examination - Vital Signs Temperature: 97.7 F Blood Pressure: 112/57 Pulse: 95 Respirations: 19 Pulse Ox (%): 94 - Physical Exam General: Alert HEENT: Atraumatic, Normocephalic Neck: Supple Respiratory: Diminished Cardiovascular: Regular rate/rhythm, Normal S1 S2 Gastrointestinal: Soft and benign Musculoskeletal: No swelling Neurological: Normal speech - Studies Laboratory Data (last 24 hrs) 04/24/22 20:30: PT 11.7, INR 1.06, APTT 31.3 04/24/22 20:30: WBC 7.2, Hgb 13.3, Hct 40.2, Plt Count 211 04/24/22 20:30: Sodium 138, Potassium 3.7, BUN 15, Creatinine 0.54 L, Glucose 104, Total Bilirubin 0.4, AST 25, ALT 22, Alkaline Phosphatase 50, Lipase 164 Microbiology Data (last 24 hrs): 04/24/22 20:40 Throat Group A Streptococcus Rapid Screen - Final 04/24/22 20:40 Nasopharnyx Influenza Type A Antigen Screen - Final 04/24/22 20:40 Nasopharnyx Influenza Type B Antigen Screen - Final Assessment and Plan - Plan COVID-19 disease Respiratory failure with hypoxia Suspected pneumonia History of hypertension Plan: Patient has significant symptom has been diagnosed with COVID-19 disease. Will have patient continued and empiric therapy with Rocephin and azithromycin for management of suspected underlying pneumonia. We will continue steroid therapy, vitamin C, zinc therapy and supportive care. Will have patient on as needed albuterol inhaler for bronchodilator therapy. Will follow symptomatology closely. Prophylaxis: Lovenox for DVT prophylaxis CODE STATUS: Full code Disposition: We will continue present care pending clinical stability. - Advance Directives Does patient have a Living Will: No Does patient have a Durable POA for Healthcare: No
[2022-04-25] MEDS ORDERED: ACETAMINOPHEN 500 MG TAB ONE (06:09)
[2022-04-25] MEDS ORDERED: AZITHROMYCIN 250 MG TAB ONE ×2 (06:09→07:44)
[2022-04-25 06:21] LABS: Specific Gravity 1.015 (1.005-1.030); Urine Bilirubin Negative (Negative); Urine Blood 2+ (Negative); Urine Clarity Clear (Clear); Urine Color Yellow (Yellow); Urine Glucose Negative (Negative); Urine Protein Negative (Negative); Urine Urobilinogen 0.2 mg/dL (0.2-1.0); Urine pH 5.5 (5.0-7.0)
[2022-04-25 06:35] LABS: Urine Bacteria <20 /HPF (<20)
[2022-04-25] MEDS ORDERED: ASCORBIC ACID 500 MG TABLET ONE (07:43)
[2022-04-25] MEDS ORDERED: ZINC SULFATE 220 MG CAP ONE (07:43)
[2022-04-25] MEDS ORDERED: dexAMETHasone 10 MG/ML VIAL ONE (07:43)
[2022-04-25] MEDS ORDERED: NA CHLORIDE 0.9% 50 ML ONE (07:44)
[2022-04-25] MEDS ORDERED: ENOXAPARIN 40 MG/0.4 ML SQ ONE (07:44)
[2022-04-25] MEDS ORDERED: CEFTRIAXONE 1000 MG/VIAL ONE (07:44)
[2022-04-25] MEDS: dexAMETHasone 4 MG TAB PO SCH (08:03)
[2022-04-25] MEDS: ENOXAPARIN 40 MG/0.4 ML SQ SCH (08:03)
[2022-04-25] MEDS: CEFTRIAXONE 1,000 MG in NA CHLORIDE 0.9% 50 ML IVPB SCH (08:03)
[2022-04-25] MEDS: ZINC SULFATE 220 MG CAP PO SCH (08:04)
[2022-04-25] MEDS: ASCORBIC ACID 500 MG TABLET PO SCH (08:04)
[2022-04-25] MEDS ORDERED: HYDROCODONE/APAP 10/325 TAB ONE (09:25)
[2022-04-25] MEDS ORDERED: INSULIN -REGULAR HUMAN 50 UNIT/0.5 ML ML ONE (11:44)
--- NOTE | 2022-04-25 13:29 | P.PN ---
Date of Service: 04/25/22 Patient states she feels much better. She has been weaned off oxygen. She still complaining of sore throat. CTA thorax demonstrated mild bilateral infiltrate versus atelectasis Diagnosis COVID-19 infection Bilateral atelectasis, pneumonia not ruled out. Acute respiratory failure with hypoxia-resolved. Plan: Continue supportive Empiric antibiotics. Vitamin supplementation. Possible discharge in a.m.
[2022-04-26 02:05] LABS: Absolute Lymphocytes (CBC) 1.9 K/uL (0.7-4.9); Hematocrit 35.3 % (36.0-45.0); Lymphocytes % 12.5 % (15.3-44.8); MPV 8.2 fL (7.6-11.3); RBC Red Blood Cell Count 3.97 M/uL (3.86-4.86)
[2022-04-26 02:22] LABS: Magnesium 2.1 mg/dL (1.8-2.4)
[2022-04-26 05:29] VITALS: BP 145/78
[2022-04-26 07:37] VITALS: TEMP 98.6
[2022-04-26] MEDS ORDERED: AZITHROMYCIN 250 MG TAB PO SCH (09:00)
[2022-04-26] MEDS: ZINC SULFATE 220 MG CAP PO SCH (09:00)
[2022-04-26] MEDS ORDERED: ZINC SULFATE 220 MG CAP ONE (09:56)
[2022-04-26] MEDS ORDERED: ASCORBIC ACID 500 MG TABLET ONE (09:56)
[2022-04-26] MEDS ORDERED: AZITHROMYCIN 250 MG TAB ONE (09:56)
[2022-04-26] MEDS ORDERED: dexAMETHasone 4 MG TAB ONE (09:56)
[2022-04-26] MEDS ORDERED: NA CHLORIDE 0.9% 50 ML ONE (09:57)
[2022-04-26] MEDS ORDERED: ENOXAPARIN 40 MG/0.4 ML SQ ONE (09:57)
[2022-04-26] MEDS ORDERED: CEFTRIAXONE 1000 MG/VIAL ONE (09:57)
[2022-04-26] MEDS: dexAMETHasone 4 MG TAB PO SCH (10:00)
[2022-04-26] MEDS: ASCORBIC ACID 500 MG TABLET PO SCH (10:00)
[2022-04-26] MEDS: ENOXAPARIN 40 MG/0.4 ML SQ SCH (10:00)
[2022-04-26] MEDS: CEFTRIAXONE 1,000 MG in NA CHLORIDE 0.9% 50 ML IVPB SCH (10:05)
--- NOTE | 2022-04-26 11:10 | P.DS ---
Admission Date: 04/25/22 Discharge Date: 04/26/22 Disposition: ROUTINE DISCHARGE Discharge Condition: FAIR Reason for Admission: Shortness of breath, COVID-19 disease. - Problems (1) Acute respiratory failure with hypoxia Status: Acute (2) COVID-19 Status: Acute Brief History of Present Illness: 81-year-old female patient with medical history significant for hypertension who was evaluated in the emergency room for episode of cough shortness of breath and fever. She reported runny nose and sore throat. Patient found to be COVID-19 d isease positive. She also had significant hypoxia with oxygen saturation in the 80s on room air so she was started on supplemental oxygen. Patient admitted for further management. Hospital Course: Patient admitted to the medical floor and treated with dexamethasone, multivitamins, zinc supplementation and Zithromax. Symptoms improved, patient was weaned off oxygen. She tolerated room air with good oxygen saturation. She was monitored overnight with no acute issues but continued to get better. Today patient denies any symptoms, vitals are stable and she is deemed stable for discharge. Given that patient was initially hypoxic, she is discharged with steroid therapy and also prescribed Zithromax. Vital Signs/Physical Exam: Temp Pulse Resp BP Pulse Ox 98.6 F 103 H 20 145/78 H 96 04/26/22 07:35 04/26/22 07:35 04/26/22 07:35 04/26/22 07:35 04/26/22 07:35 General: Alert, In no apparent distress HEENT: Mucous membr. moist/pink Neck: JVD not distended Respiratory: Clear to auscultation bilaterally, Normal air movement Cardiovascular: No edema, Regular rate/rhythm Gastrointestinal: Normal bowel sounds, Soft and benign, Non-distended Musculoskeletal: No swelling Integumentary: No rashes Neurological: Normal strength at 5/5 x4 extr, Cranial nerves 3-12 intact Laboratory Data at Discharge: WBC 15.3 K/uL (4.3-10.9) H D 04/26/22 01:30 Hgb 11.7 g/dL (12.0-15.0) L 04/26/22 01:30 Hct 35.3 % (36.0-45.0) L 04/26/22 01:30 Plt Count 192 K/uL (152-406) 04/26/22 01:30 PT 11.7 SECONDS (9.5-12.5) 04/24/22 20:30 INR 1.06 04/24/22 20:30 APTT 31.3 SECONDS (24.3-36.9) 04/24/22 20:30 Sodium 141 mmol/L (136-145) 04/26/22 01:30 Potassium 4.0 mmol/L (3.5-5.1) 04/26/22 01:30 BUN 19 mg/dL (7-18) H 04/26/22 01:30 Creatinine 0.49 mg/dL (0.55-1.3) L 04/26/22 01:30 Glucose 104 mg/dL (74-106) 04/26/22 01:30 Magnesium 2.1 mg/dL (1.8-2.4) 04/26/22 01:30 Total Bilirubin 0.4 mg/dL (0.2-1.0) 04/24/22 20:30 AST 25 U/L (15-37) 04/24/22 20:30 ALT 22 U/L (12-78) 04/24/22 20:30 Alkaline Phosphatase 50 U/L (45-117) 04/24/22 20:30 Lipase 164 U/L (73-393) 04/24/22 20:30 Home Medications: Cholecalciferol (Vitamin D3) [Vitamin D3] 1,000 unit PO DAILY 04/25/22 Valsartan [Diovan] 80 mg PO BID 04/25/22 Vitamin C/Biotin [Hair, Skin and Nails Gummies] 1 each PO DAILY 04/25/22 Ascorbic Acid [Vitamin C*] 500 mg PO BID #60 tablet 04/26/22 Azithromycin Tab [Zithromax*] 250 mg PO DAILY #4 tab 04/26/22 Methylprednisolone [Medrol dosepack] 4 mg PO DIRECTED #1 william 04/26/22 Zinc Sulfate [Zinc Sulfate*] 220 mg PO DAILY #30 cap 04/26/22 New Medications: Methylprednisolone [Medrol dosepack] 4 mg PO DIRECTED #1 william Ascorbic Acid [Vitamin C*] 500 mg PO BID #60 tablet Zinc Sulfate [Zinc Sulfate*] 220 mg PO DAILY #30 cap Azithromycin Tab [Zithromax*] 250 mg PO DAILY #4 tab Diet: AHA Activity: Ad vanita Followup: Rebecca Mittal DO [Primary Care Provider] - 1 Week Time spent managing pt's care (in minutes): 34
[2022-04-26 12:10] VITALS: O2SAT 96
--- NOTE | 2022-04-27 10:37 | RAD REPORT ---
EXAM DESCRIPTION: CT - Chest For Pe Angio - 04/25/2022 6:50 am CLINICAL HISTORY: 81 years Female elevated d-dimer, shortness of breath COMPARISON: None TECHNIQUE: Images were obtained in axial, sagittal, and coronal planes. Intravenous contrast was adm inistered. 3-D MIP imaging was performed. This exam was performed according to our departmental dose-optimization program which includes use of Automated Exposure Control, adjustment of the mA and/or kV according to patient size and/or use of iterative reconstruction technique. FINDINGS: No filling defects pulmonary arteries bilaterally. No aortic dissection or dilatation. No right heart strain. No pericardial or pleural effusions bilaterally. No adenopathy. Airspace attenuation lower lobes bilaterally no pneumothorax. No consolidation. No acute osseous abnormality. No abnormality upper abdomen. IMPRESSION: No evidence for pulmonary embolus. No aortic dissection or dilatation. Infiltrate and at electatic change lower lobes bilaterally. Electronically signed by: Vonnie Jean MD 04/24/2022 11:20 PM CDT Due to temporary technical issues with the PACS/Fluency reporting system, reports are being signed by the in house radiologists without review as a courtesy to insure prompt reporting. The interpreting radiologist is fully responsible for the content of the report.
--- NOTE | 2022-04-27 12:48 | EKG ---
Test Date: 2022-04-24 Test Time: 20:45:39 Traffic Observer: SABINE MEASUREMENT RESULTS: Intervals: Rate: 110 SD: 142 QRSD: 88 QT: 330 QTc: 446 [place]: P: 62 SD: 142 QRS: -56 T: 87 INTERPRETIVE STATEMENTS: Sinus tachycardia Left anterior fascicular block Possible Anterior infarct, age undetermined Abnormal ECG Compared to ECG 06/28/2020 15:32:20 Left anterior fascicular block now present Myocardial infarct finding now present Sinus rhythm no longer present Atrial premature complex(es) no longer present Electronically Signed On 04-27-22 12:43:57 CDT by Andrew Gonzalez
--- OUTSIDE RECORDS SUMMARY | 2022-04-30 07:37 | XMS REPORT | Continuity of Care Document ---
:1940 Author Organization [facility] t Address [address] [place] [address] Care Team Providers Name Role Phone Derik Mittal Attending Clinician Unavailable Emilio-Mbayo_A_AH Attending Clinician Unavailable Emilio-Mbayo_A_AH Admitting Clinician Unavailable Payers Payer Name Policy Type Policy Number Effective Date Expiration Date S [facility] [id number] 2019 [employer] 00:00:00 (MEDICARE REPLACEMENT/ADVANT AGE - HMO) Problems This patient has no known problems. Allergies, Adverse Reactions, Alerts Allergy Allergy Status Severity Reaction(s) Onset Inactive Treating Comm ents Source Name Type Date Date Clinician penicill Adverse Active constriction C ommon in Reaction of throat [facility] t [facility] Medications Ordered Filled Start Stop Current Ordering Indication Dosage Frequency Signature Comments Components Source Medication Medication Date Date Medication? Clinician (SIG) Name Name Losartan Losartan 2019-0 Yes Na Mittal TAKE ONE Common Potassium Potassium 2-13 (1) Spiri t 00:00: TABLET(S) - [facility] [address] ON[facility] DAY[facility] Aspir-81 Aspir-81 Yes Na Mittal 1 tablet Common [facility] Lamisil Lamisil Yes Na Mittal 1 tablet Co mmon [facility] Macrobid Macrobid Yes Na Mittal 1 capsule Common with food [facility] Procedures This patient has no known procedures. Encounters Start End Encounter Admission Attending Care Care Encounter Source Date/Time Date/Time Type Type Clinicians Facility Department ID 2021-12-03 Outpatient Mittal, Na STLMLC STLMLC [id number] 2 Common 13:28:00 [facility] 2021-11-05 Outpatient Mittal, Na STLMLC STLMLC [id number] 2 Common 12:44:42 [id number] [facility] 2021-11-05 Outpatient Mittal, Na STLMLC STLMLC [id number] 2 Common 12:44:20 [id number] [facility] 2021-11-05 Outpatient Mittal, Na STLMLC STLMLC [id number] 2 Common 12:35:00 [id number] [facility] 2021-11-05 Outpatient Mittal, Na STLMLC STLMLC [id number] 2 Common 12:27:41 [id number] [facility] 2021-11-05 Outpatient Mittal, Na STLMLC STLMLC [id number] 2 Common 12:27:03 [id number] [facility] 2021-11-05 Outpatient Mittal, Na STLMLC STLMLC [id number] 2 Common 12:17:24 [id number] [facility] 2022-03-17 2022-03-17 ambulatory STLMLC STLMLC [id number] Common 00:00:00 00:00:00 [facility] 2021-12-12 2021-12-12 ambulatory STLMLC STLMLC [id number] Common 00:00:00 00:00:00 [facility] 2021-12-09 2021-12-09 ambulatory STLMLC STLMLC [id number] Common 00:00:00 00:00:00 [facility] 2021-09-08 2021-09-08 ambulatory STLMLC STLMLC [id number] Common 00:00:00 00:00:00 [facility] 2021-09-08 2021-09-08 ambulatory STLMLC STLMLC [id number] Common 00:00:00 00:00:00 [facility] 2021-07-21 2021-07-21 Outpatient STLMLC STLMLC [id number] Common 00:00:00 00:00:00 [facility] 2021-02-11 2021-02-11 Outpatient STLMLC STL[facility]C [id number] Common 00:00:00 00:00:00 [facility] 2021-01-03 2021-01-03 Outpatient STLMLC STL[facility]C [id number] Common 00:00:00 00:00:00 [facility] 2021-01-03 2021-01-03 Outpatient STLMLC STL[facility]C [id number] Common 00:00:00 00:00:00 [facility] 2020-11-12 2020-11-12 Outpatient STLMLC STL[facility]C [id number] Common 00:00:00 00:00:00 [facility] 2020-10-14 2020-10-14 Outpatient STLMLC STLMLC [id number] Common 00:00:00 00:00:00 [facility] 2020-07-09 2020-07-09 Outpatient STLMLC STLMLC [id number] Common 00:00:00 00:00:00 [facility] 2020-07-02 2020-07-02 Outpatient STLMLC STL[facility]C [id number] Common 00:00:00 00:00:00 [facility] 2020-07-02 2020-07-02 Outpatient STLMLC STL[facility]C [id number] Common 00:00:00 00:00:00 [facility] 2020-06-28 2020-06-28 Outpatient STLMLC STLMLC [id number] Common 00:00:00 00:00:00 [facility] 2020-03-06 2020-03-06 [facility] [id number] Common 10:00:00 10:00:[address] [facility] 2020-03-06 2020-03-06 [facility] [id number] Common 09:40:00 09:40:[address] [facility] 2019-12-25 2019-12-25 [facility] [id number] Common 10:00:00 10:00:[address] Family - [facility] 2019-11-29 2019-11-29 Outpatient Emilio-Mbayo VFP VFP [id number] [facility] 07:14:00 07:14:00 _A_AH [id number] Family Practic e 2019-11-29 2019-11-29 Outpatient Emilio-Mbayo VFP VFP [id number] [facility] 07:14:00 07:14:00 _A_AH [id number] Family Practic e 2019-11-02 2019-11-02 [facility] [id number] Common 10:16:00 10:16:[address] [facility] 2019-09-14 2019-09-14 [facility] [id number] Common 16:29:00 16:29:[address] [facility] 2019-06-21 2019-06-21 [facility] [id number] Common 10:40:00 10:40:[address] [facility] 2019-02-03 2019-02-03 [facility] [id number] Common 10:18:00 10:18:[address] [facility] 2018-12-22 2018-12-22 [facility] [id number] Common 11:15:00 11:15:[address] Family - [facility] 2018-11-23 2018-11-23 [facility] [id number] Common 11:15:00 11:15:[address] [facility] 2018-03-03 2018-03-03 [facility] [id number] Common 09:15:00 09:15:[address] [facility] 2018-02-18 2018-02-18 [facility] [id number] Common 13:18:00 13:18:[address] [facility] 2018-01-05 2018-01-05 Outpatient Peyton Toddt [id number] Common 10:45:00 10:45:00 t [place] [employer] [facility] it Drive [facility] Results This patient has no known results.
== END 2022-04-26 12:32 | disposition home or self-care (01) | DRG 177 ==
LOC: ER 19:27 → ERHOLD 04-25 02:01
PROVIDERS: ADMIT Internal Medicine Nephrology; ATTEND Internal Medicine Nephrology
DX: U07.1 COVID-19 (principal); J12.82 Pneumonia due to coronavirus disease 2019; J96.01 Acute respiratory failure with hypoxia; I10 Essential (primary) hypertension; Z88.0 Allergy status to penicillin
CPT/HCPCS: 36415; 71045; 71275; 80048; 80076; 81001; 82728; 83605; 83690; 83735; 84145; 84484; 85025; 85379; 85610; 85730; 86140; 87040; 87070; 87081; 87804; 93005; 96374; 99285; J1100; J1650; J1815; J2930; J7030; J8540; Q9967; U0003

== ENCOUNTER 2022-12-09 05:57 | Day surgery (SDC) | payer OTHER ==
[2022-12-09] MEDS ORDERED: Ringers Lactate 1,000 ML IV ONE (06:17)
[2022-12-09] MEDS ORDERED: LIDOCAINE 1% W/EPI 1:100,000 50 ML MDV ONE (06:39)
[2022-12-09] MEDS ORDERED: LIDOCAINE 2% MPF 5 ML VIAL ONE (06:56)
[2022-12-09] MEDS ORDERED: FENTANYL CITR 100 MCG/2 ML ONE (06:56)
[2022-12-09] MEDS ORDERED: MIDAZOLAM HCL 2 MG/2 ML INJ ONE (06:56)
[2022-12-09] MEDS ORDERED: propofoL 200 MG/20 ML VIAL IV ONE ×2 (06:56→07:55)
--- NOTE | 2022-12-09 07:32 | P.BOP ---
Preoperative diagnosis: pelvic pain, stage 3 uterovaginal prolapse Postoperative diagnosis: same and endometrial polyp Primary procedure: Operative hysteroscopy polypectomy w/myosure lite,endometrial sampling(d/c) Estimated blood loss: min Specimen: emc and polyp Findings: atrophic lining,Cxstenosis, RF uterus, endometrial polyp,removed completely Anesthesia: MAC Complications: None Transferred to: Recovery Room Condition: Good
[2022-12-09] MEDS ORDERED: HOME MED 1 EA UNK (Vit C/E/Zn/Coppr/Lutein/Zeaxan [Preservision Areds 2 Softgel] Capsule) PO SCH (09:00)
[2022-12-09] MEDS ORDERED: B COMPLEX WITH VITAMIN C PO SCH (09:00)
[2022-12-09] MEDS ORDERED: COENZYME Q10- 100 MG CAP PO SCH (09:00)
[2022-12-09] MEDS ORDERED: VALSARTAN 80 MG TAB PO SCH (09:00)
[2022-12-09] MEDS ORDERED: VITAMIN D 5,000 UNIT CAP PO SCH (09:00)
[2022-12-09 12:57] VITALS: TEMP 96.9; O2SAT 100
[2022-12-09 12:58] VITALS: BP 131/61
== END 2022-12-09 09:00 | disposition home or self-care (01) ==
LOC: OR 05:57
PROVIDERS: ATTEND Obstetrics & Gynecology
PROC: 0UDB8ZX Extraction of Endometrium, Via Natural or Artificial Opening Endoscopic, Diagnostic (ICD-10-PCS; principal; 2022-12-09 07:00)
DX: R10.2 Pelvic and perineal pain (principal); N84.0 Polyp of corpus uteri; N95.2 Postmenopausal atrophic vaginitis; N81.2 Incomplete uterovaginal prolapse; R19.09 Other intra-abdominal and pelvic swelling, mass and lump; N32.81 Overactive bladder; D25.9 Leiomyoma of uterus, unspecified; L30.4 Erythema intertrigo; I10 Essential (primary) hypertension; F41.9 Anxiety disorder, unspecified
CPT/HCPCS: 88305; 58558; J2704 ×2; J2001; J3010; J7120; J2250